=== PATIENT | male | born 1990 | race Caucasian/White ===

== ENCOUNTER 2017-05-08 22:29 | Emergency (ER) | payer OTHER ==
[~2017-05-08 22:29] MED LIST: ALPR.25 PO; DEPA500T3 PO; GNP50LIQ PO
[2017-05-09] MEDS ORDERED: DEPA500T3 PO (00:37)
== END 2017-05-08 22:44 | disposition left against medical advice (07) ==
LOC: PHED 22:29
DX: Z53.21 Procedure and treatment not carried out due to patient leaving prior to being seen by health care provider (principal)
CPT/HCPCS: 99281

== ENCOUNTER 2017-05-08 23:23 | Emergency (ER) | payer OTHER ==
[~2017-05-08] VITALS: Ht 170.2 cm; Wt 71.1 kg
[2017-05-08 23:32] VITALS: BP 130/62; PULSE 94; RESP 14; TEMP 98.3; O2SAT 96
[2017-05-09 00:29] VITALS: BP 121/61; PULSE 83; RESP 18; TEMP 98.3; O2SAT 98
[2017-05-09] MEDS ORDERED: DEPA500T3 PO (00:37)
[2017-05-09] MEDS ORDERED: SODIUM CHLORIDE 0.9% FLUSH 10 ML FLUSH IVF PRN (00:45)
[2017-05-09 00:51] VITALS: PULSE 83; RESP 18; O2SAT 98
[2017-05-09 00:54] VITALS: BP_SYST 112; BP_SYST 115; BP_DIAS 54; BP_DIAS 57; PULSE 71; RESP 18; O2SAT 97
[2017-05-09 00:56] LABS: AUTOMATED NEUTROPHIL # 7.6 TH/MM3 (1.8-7.7); BASOPHIL # 0.1 TH/MM3 (0-0.2); BASOPHIL % 0.6 % (0.0-2.0); EOSINOPHIL # 0.3 TH/MM3 (0-0.4); EOSINOPHIL % 2.2 % (0.0-4.0); HEMATOCRIT 44.8 % (39.0-51.0); HEMOGLOBIN 14.8 GM/DL (13.0-17.0); LYMPH % 24.6 % (9.0-44.0); LYMPHOCYTE # 2.9 TH/MM3 (1.0-4.8); MEAN CELL VOLUME 93.6 FL (80.0-100.0); MEAN CORPUSCULAR HEMOGLOBIN 30.9 PG (27.0-34.0); MEAN PLATELET VOLUME 8.9 FL (7.0-11.0); MONO % 7.9 % (0.0-8.0); MONOCYTE # 0.9 TH/MM3 (0-0.9); NEUT % 64.7 % (16.0-70.0); PLATELET COUNT 146 TH/MM3 (150-450); RED BLOOD COUNT 4.79 MIL/MM3 (4.50-5.90); RED CELL DISTRIBUTION WIDTH 13.2 % (11.6-17.2); WHITE BLOOD COUNT 11.8 TH/MM3 (4.0-11.0)
[2017-05-09 01:05] VITALS: BP 106/60; PULSE 70; RESP 18; O2SAT 98
[2017-05-09 01:05] LABS: CHLORIDE 107 MEQ/L (98-107); SODIUM (NA) 141 MEQ/L (136-145)
[2017-05-09 01:07] LABS: CALCIUM 8.3 MG/DL (8.5-10.1)
[2017-05-09 01:08] LABS: BICARBONATE 29.1 MEQ/L (21.0-32.0); BLOOD UREA NITROGEN 13 MG/DL (7-18); GLUCOSE,RANDOM 90 MG/DL (74-106); MAGNESIUM 2.2 MG/DL (1.5-2.5)
[2017-05-09 01:11] LABS: CREATININE 0.82 MG/DL (0.60-1.30); GLOMERULAR FILTRATION RATE 114 ML/MIN (>89); INTERNATIONAL NORMALIZED RATIO 1.1 RATIO; PROTHROMBIN TIME - PATIENT 11.2 SEC (9.8-11.6)
[2017-05-09 01:16] LABS: TROPONIN I LESS THAN 0.02 NG/ML (0.02-0.05)
--- NOTE | 2017-05-09 01:23 | RADRPT ---
EXAM DATE/TIME: 05/09/2017 00:59 [place] COMPARISON: No previous studies available for comparison. INDICATIONS : Chest pain since this afternoon. MEDICAL HISTORY : None. SURGICAL HISTORY : None. ENCOUNTER: Initial ACUITY: 1 day PAIN SCORE: 7/10 LOCATION: Bilateral chest upper chest FINDINGS: A single view of the chest demonstrates the lungs to be symmetrically aerated without evidence of mas s, infiltrate or effusion. The cardiomediastinal contours are unremarkable. Osseous structures are intact. CONCLUSION: No acute disease. Jose Ross MD on May 09, 2017 at 1:20 Board Certified Radiologist. This report was verified electronically.
--- NOTE | 2017-05-09 02:02 | PD ---
HPI Chief Complaint: Chest Pain Time Seen by Provider: 00:42 Travel History International Travel<30 days: No Contact w/Intl Traveler<30days: No Traveled to known affect area: No History of Present Illness HPI 27-year-old male presents to the emergency department for complaint of intermittent chest discomfort and dizziness that is no longer present. Patient denies any compliant with his seizure medication. Patient denies any injury. Patient's had no fever chills. Patient denies any pleuritic pain and no shortness of breath or hemoptysis. Patient denies any known history of CAD hypertension dyslipidemia diabetes or tobaccoism. Patient denies family history of cardiac disease but does have family history of hypertension. Patient rates pain 5 and 6 in intensity when present states that lasted for several minutes and has resolved spontaneously. Patient came to the emergency department earlier this evening had an EKG performed in the left without being seen and returns now but denies any pain at this time. Patient states he cannot take any aspirin products as she's been told he is not allowed to take aspirin products but is only known to be allergic to codeine and penicillin. Patient's current pain is 0/10 intensity. Patient is unable to identify exacerbating or alleviating factors. Patient is not reporting long distance travel protracted bedrest surgical procedure lotion be pain or swelling or family history of personal history of clotting disorder. PFSH Past Medical History Narrative Medical ADHD cerebral palsy seizure disorder; no surgeries; no tobacco use; no family history [place]; nursing notes reviewed ADHD: Yes Bipolar Disorder: Yes Cerebral Palsy: Yes Developmental Delay: Yes Diminished Hearing: No Immunizations Current: Yes Seizures: Yes Influenza Vaccination: Yes Social History Alcohol Use: No Tobacco Use: No Substance Use: No Allergies-Medications (Allergen,Severity, Reaction): Coded Allergies: penicillin G (Unverified Allergy, Severe, rash, 05/09/17) codeine (Unverified Allergy, Mild, RASH, 05/09/17) Reported Meds & Prescriptions Reported Meds & Active Scripts Active Reported Depakote ER (Divalproex Sodium) 500 Mg Enriqueta 500 Mg PO BID Review of Systems Except as stated in HPI: all other systems reviewed are Neg Physical Exam Narrative GENERAL: Well-developed well-nourished male in no acute distress no respiratory distress SKIN: Warm and dry. HEAD: Normocephalic. EYES: No scleral icterus. No injection or drainage. NECK: Supple, trachea midline. No JVD or lymphadenopathy. CARDIOVASCULAR: Regular rate and rhythm without murmurs, gallops, or rubs. RESPIRATORY: Breath sounds equal bilaterally. No accessory muscle use. GASTROINTESTINAL: Abdomen soft, non-tender, nondistended. MUSCULOSKELETAL: No cyanosis, or edema. BACK: Nontender without obvious deformity. No CVA tenderness. Data Data Last Documented VS Vital Signs Date Time Temp Pulse Resp B/P (MAP) Pulse Ox O2 Delivery O2 Flow Rate FiO2 05/09/17 01:05 70 18 106/60 (75) 98 Room Air 05/09/17 00:29 98.3 Orders Orders Electrocardiogram (05/09/17 00:42) Basic Metabolic Panel (Bmp) (05/09/17 00:42) Ckmb (Isoenzyme) Profile (05/09/17 00:42) Complete Blood Count With Diff (05/09/17 00:42) Magnesium (Mg) (05/09/17 00:42) Prothrombin Time / Inr (Pt) (05/09/17 00:42) Act Partial Throm Time (Ptt) (05/09/17 00:42) Troponin I (05/09/17 00:42) Chest, Single Ap (05/09/17 00:42) Ecg Monitoring (05/09/17 00:42) Bilateral Bp Monitoring (05/09/17 00:42) Iv Access Insert/Monitor (05/09/17 00:42) Oximetry (05/09/17 00:42) Oxygen Administration (05/09/17 00:42) Sodium Chloride 0.9% Flush (Ns Flush) (05/09/17 00:45) Valproic Acid (Depakene) (05/09/17 00:42) CKMB (05/09/17 00:50) CKMB% (05/09/17 00:50) Labs Laboratory Tests Test 05/09/17 00:50 White Blood Count 11.8 TH/MM3 Red Blood Count 4.79 MIL/MM3 Hemoglobin 14.8 GM/DL Hematocrit 44.8 % Mean Corpuscular Volume 93.6 FL Mean Corpuscular Hemoglobin 30.9 PG Mean Corpuscular Hemoglobin Concent 33.0 % Red Cell Distribution Width 13.2 % Platelet Count 146 TH/MM3 Mean Platelet Volume 8.9 FL Neutrophils (%) (Auto) 64.7 % Lymphocytes (%) (Auto) 24.6 % Monocytes (%) (Auto) 7.9 % Eosinophils (%) (Auto) 2.2 % Basophils (%) (Auto) 0.6 % Neutrophils # (Auto) 7.6 TH/MM3 Lymphocytes # (Auto) 2.9 TH/MM3 Monocytes # (Auto) 0.9 TH/MM3 Eosinophils # (Auto) 0.3 TH/MM3 Basophils # (Auto) 0.1 TH/MM3 CBC Comment DIFF FINAL Differential Comment Prothrombin Time 11.2 SEC Prothromb Time International Ratio 1.1 RATIO Activated Partial Thromboplast Time 25.9 SEC Blood Urea Nitrogen 13 MG/DL Creatinine 0.82 MG/DL Random Glucose 90 MG/DL Calcium Level 8.3 MG/DL Magnesium Level 2.2 MG/DL Sodium Level 141 MEQ/L Potassium Level 4.3 MEQ/L Chloride Level 107 MEQ/L Carbon Dioxide Level 29.1 MEQ/L Anion Gap 5 MEQ/L Estimat Glomerular Filtration Rate 114 ML/MIN Total Creatine Kinase 157 U/L Creatine Kinase MB 1.2 NG/ML Troponin I LESS THAN 0.02 NG/ML Valproic Acid (Depakene) Level 79 MCG/ML [facility] Medical Decision Making Medical Screen Exam Complete: Yes Emergency Medical Condition: Yes Medical Record Reviewed: Yes Interpretation(s) EKG normal sinus rhythm rate [address] elevation or injury pattern or ectopy noted CK 157, not elevated troponin I less than 0.02, not elevated Depakote: 79, therapeutic Last Impressions Chest X-Ray 05/09/17 0042 Signed Impressions: Service Date/Time: Tuesday, May 09, 2017 00:59 - CONCLUSION: No acute disease. Jose Ross MD CBC & BMP Diagram 05/09/17 00:50 Calcium Level 8.3 L, Magnesium Level 2.2 Vital Signs Date Time Temp Pulse Resp B/P (MAP) Pulse Ox O2 Delivery O2 Flow Rate FiO2 05/09/17 01:05 70 18 106/60 (75) 98 Room Air 05/09/17 00:54 71 18 112/57 (75) 97 Room Air 115/54 (74) 05/09/17 00:51 83 18 98 Room Air 05/09/17 00:33 83 18 98 Room Air 05/09/17 00:29 98.3 83 18 121/61 (81) 98 05/08/17 23:32 98.3 94 14 130/62 (84) 96 Differential Diagnosis Chest pain atypical chest pain, ACS, [place], costochondritis, pleurisy, PE, viral syndrome, musculoskeletal pain Narrative Course Patient placed on patient monitor with continuous pulse oximetry; EKG performed shows no acute injury pattern patient placed on patient monitor with continuous pulse oximetry; patient refuses aspirin or aspirin products or NSAIDs states he generally take Tylenol and has no pain at this time; EKG performed shows no acute injury pattern Lab work collected and sent for resulting Patient resting comfortably voicing no concerns or complaints lab values are found to be in normal range patient's Depakote is therapeutic History the patient is stable for outpatient management Diagnosis Primary Impression: Atypical chest pain Referrals: Primary Care Physician call for appointment Patient Instructions: General Instructions Additional Instructions: Continue current medications as chronically prescribed Follow-up with your primary care provider Return to the emergency department for any concerns or change in condition Med/Other Pt SpecificInfo: No Change to Meds Disposition: 01 DISCHARGE HOME Condition: Stable Yoselin Reyes MD May 09, 2017 02:02
[2017-05-09 02:21] VITALS: BP 115/59
--- NOTE | 2017-05-09 19:53 | EKG ---
Date Performed: 05/08/2017 Time Performed: 22:39:12 PTAGE: 27 years EKG: Sinus rhythm WITH SINUS ARRHYTHMIA NORMAL ECG NO PREVIOUS TRACING DOCTOR: En Sanz Interpretating Date/Time 05/09/2017 19:51:59
--- NOTE | 2017-05-09 19:53 | EKG ---
Date Performed: 05/09/2017 Time Performed: 00:23:16 PTAGE: 27 years EKG: Sinus rhythm WITH SHORT PA INTERVAL Since previous tracing, no significant change noted BORDERLINE ECG NO PREVIOUS TRACING : 05/08/2017 22.39.12 DOCTOR: En Sanz Interpretating Date/Time 05/09/2017 19:53:03
== END 2017-05-09 02:34 | disposition home or self-care (01) ==
LOC: PHED 23:23
DX: R07.89 Other chest pain (principal); G80.9 Cerebral palsy, unspecified; G40.909 Epilepsy, unspecified, not intractable, without status epilepticus; F31.9 Bipolar disorder, unspecified; F90.9 Attention-deficit hyperactivity disorder, unspecified type; Z88.0 Allergy status to penicillin; Z88.5 Allergy status to narcotic agent
CPT/HCPCS: 71045; 80048; 80164; 82550; 82552; 83735; 84484; 85025; 85610; 85730; 93005; 99285